=== PATIENT | male | born 1980 | race Caucasian/White ===

== ENCOUNTER 2017-05-21 18:46 | Emergency (ER) | payer BC ==
[2017-05-21 18:58] VITALS: BP 160/89
--- NOTE | 2017-05-21 19:33 | EDM.PDOC ---
ED HPI GENERAL MEDICAL PROBLEM - General Chief Complaint: Neuro Symptoms/Deficits Stated Complaint: numbness in left foot/leg Time Seen by Provider: 05/21/17 19:00 Source of Information: Reports: Patient History Limitations: Reports: No Limitations - History of Present Illness INITIAL COMMENTS - FREE TEXT/NARRATIVE: Patient is a 36-year-old man who comes in to the ER with chief complaint of numbness in his left lower extremities patient states that this is been going on for about 5 days worse when he is not wearing shoes able to ambulate with no increased pain in calf or leg, able to sleep denies pain at rest. Patient works on his feet at [employer]. Onset: Gradual Duration: Day(s):, Getting Worse Location: Reports: Lower Extremity, Left Quality: Reports: Ache, Other (Achy in the legs numb in the feet) Severity: Mild Improves with: Reports: Other (Feels better while at work) Worsens with: Reports: None Context: Reports: Sick Contact Associated Symptoms: Reports: No Other Symptoms - Related Data Allergies Allergy/AdvReac Type Severity Reaction Status Date / Time No Known Allergies Allergy Verified 05/21/17 18:55 Home Meds: Home Meds . [No Known Home Meds] 05/21/17 [History] Past Medical History - Past Health History Medical/Surgical History: Denies Medical/Surgical History Cardiovascular History: Reports: Hypertension Respiratory History: Reports: Other (See Below) Other Respiratory History: pneumonia x 1 Musculoskeletal History: Reports: Back Pain, Chronic - Infectious Disease History Infectious Disease History: Reports: Chicken Pox Social & Family History - Tobacco Use Smoking Status *Q: Former Smoker Years of Tobacco use: 8 Packs/Tins Daily: 1 Used Tobacco, but Quit: Yes Month Tobacco Last Used: 1 Second Hand Smoke Exposure: No - Caffeine Use Caffeine Use: Reports: Coffee, Soda - Alcohol Use Days Per Week of Alcohol Use: 1 Number of Drinks Per Day: 2 Total Drinks Per Week: 2 - Recreational Drug Use Recreational Drug Use: No ED ROS GENERAL - Review of Systems Review Of Systems: See Below Constitutional: Reports: No Symptoms HEENT: Reports: No Symptoms Respiratory: Reports: No Symptoms Cardiovascular: Reports: No Symptoms Endocrine: Reports: No Symptoms GI/Abdominal: Reports: No Symptoms : Reports: No Symptoms Musculoskeletal: Reports: No Symptoms Skin: Reports: No Symptoms Neurological: Reports: No Symptoms Psychiatric: Reports: No Symptoms Hematologic/Lymphatic: Reports: No Symptoms Immunologic: Reports: No Symptoms ED EXAM, GENERAL - Physical Exam Exam: See Below Exam Limited By: No Limitations General Appearance: Alert, WD/WN, No Apparent Distress Eye Exam: Bilateral Eye: EOMI, PERRL Ears: Normal External Exam, Normal Canal, Hearing Grossly Normal, Normal TMs Ear Exam: Bilateral Ear: Auricle Normal, Canal Normal, TM normal Nose: Normal Inspection, Normal Mucosa, No Blood Throat/Mouth: Normal Inspection, Normal Lips, Normal Teeth, Normal Gums, Normal Oropharynx, Normal Voice, No Airway Compromise Head: Atraumatic, Normocephalic Neck: Normal Inspection, Supple, Non-Tender, Full Range of Motion Respiratory/Chest: No Respiratory Distress, Lungs Clear, Normal Breath Sounds, No Accessory Muscle Use, Chest Non-Tender Cardiovascular: Normal Peripheral Pulses, Regular Rate, Rhythm, No Edema, No Gallop, No JVD, No Murmur, No Rub Peripheral Pulses: 0: Dorsalis Pedis (L), Dorsalis Pedis (R), 1+: Posterior Tibial (L) (Dopplerable), Posterior Tibial (R) (Dopplerable), 3+: Popliteal (L) , Popliteal (R), 4+: Femoral (L), Femoral (R) GI/Abdominal: Normal Bowel Sounds, Soft, Non-Tender, No Organomegaly, No Distention, No Abnormal Bruit, No Mass (Male) Exam: Deferred Rectal (Males) Exam: Deferred Back Exam: Normal Inspection, Full Range of Motion, NT Extremities: Normal Inspection, Normal Range of Motion, No Pedal Edema, Other ( Left lower leg numbness) Neurological: Alert, Oriented, CN II-XII Intact, Normal Cognition, Normal Gait, Normal Reflexes, No Motor/Sensory Deficits Psychiatric: Normal Affect, Normal Mood Skin Exam: Warm, Dry, Intact, Normal Color, No Rash Course - Vital Signs Last Recorded V/S: Last Vital Signs Temp 97.7 F 05/21/17 18:47 Pulse 105 H 05/21/17 18:47 Resp 20 05/21/17 18:47 BP 160/89 H 05/21/17 18:58 Pulse Ox 99 05/21/17 18:47 Departure - Departure Time of Disposition: 19:35 Disposition: Home, Self-Care 01 Condition: Good Clinical Impression: Numbness of left lower extremity - Discharge Information Care Plan Goals: At this time patient will be sent home we will do brachial ankle index is tomorrow and schedule him for an MRI of the lower back
== END 2017-05-21 20:05 | disposition home or self-care (01) ==
LOC: LL.ED 18:46
DX: R20.0 Anesthesia of skin (principal); I10 Essential (primary) hypertension; Z87.891 Personal history of nicotine dependence
CPT/HCPCS: 99284

== ENCOUNTER 2024-09-08 08:47 | Emergency (ER) | payer OTHER, BC ==
[2024-09-08] MEDS: Lidocaine 1% 5 ML VIAL INJECT ONE (09:02)
[2024-09-08] MEDS: Bacitracin Oint 1 GM U/D Packet TOP ONE (09:02)
[2024-09-08 09:54] VITALS: BP 156/106; PULSE 74
== END 2024-09-08 10:15 | disposition home or self-care (01) ==
LOC: LL.ED 08:47
DX: S51.812A Laceration without foreign body of left forearm, initial encounter (principal); I11.9 Hypertensive heart disease without heart failure; W26.8XXA Contact with other sharp object(s), not elsewhere classified, initial encounter; Y99.0 Civilian activity done for income or pay
CPT/HCPCS: 12002; 99282; J2003